=== PATIENT | female | born 2000 | race Caucasian/White ===

== ENCOUNTER 2018-03-15 19:15 | Emergency (ER) | payer SELFPAY ==
[~2018-03-15] VITALS: Ht 170.2 cm; Wt 65.9 kg
[2018-03-15 19:35] VITALS: Ht 170.2 cm; Wt 65.9 kg
[2018-03-15] MEDS ORDERED: TYLENOL #4 W/CO1 TAB PO (23:47)
[2018-03-16 01:17] VITALS: BP 131/80
== END 2018-03-16 00:15 | disposition home or self-care (01) ==
LOC: D.ER 19:15
DX: S93.401A Sprain of unspecified ligament of right ankle, initial encounter (principal); W18.31XA Fall on same level due to stepping on an object, initial encounter; Y93.89 Activity, other specified; Y92.89 Other specified places as the place of occurrence of the external cause

== ENCOUNTER 2018-04-22 18:03 | Emergency (ER) | payer MEDICAID ==
[~2018-04-22] VITALS: Ht 170.2 cm; Wt 63.6 kg
[~2018-04-22 18:03] MED LIST: TYLENOL #4 W/CO1 TAB PO
[2018-04-22 18:10] VITALS: Ht 170.2 cm; Wt 63.6 kg
[2018-04-22 18:48] LABS: BASOPHILS 0.1 % (0-2); EOSINOPHILS 2.6 % (0-7); HEMATOCRIT 39.5 % (36.0-48.0); HEMOGLOBIN 12.6 g/dL (12-16); IMMATURE GRANULOCYTES 0.4 % (0-5); LYMPHOCYTES 19.2 % (15-50); MCH 27.1 pg (26.0-34.0); MCHC 31.9 g/dL (31.0-37.0); MCV 84.9 fL (80.0-100.0); MEAN PLATELET VOLUME 10.4 fL (7.4-10.4); MONOCYTES 5.1 % (2-11); NEUTROPHILS 72.6 % (40-80); PLATELET COUNT 298 10x3/uL (130-400); RBC 4.65 10x6/uL (4.00-5.40); RDW 13.9 % (11.5-14.5); WBC 10.2 10x3/uL (4.8-10.8)
[2018-04-22 19:09] LABS: ALBUMIN 3.9 g/dL (3.4-5.0); ALKALINE PHOSPHATASE 96 U/L (46-116); ALT (SGPT) 23 U/L (10-68); CALC OSMOLALITY 284 mosm/kg (275-300); CALCIUM 8.8 mg/dL (8.5-10.1); CARBON DIOXIDE 26.4 mmol/L (21.0-32.0); CHLORIDE - SERUM 103 mmol/L (98-107); CREATININE - SERUM 0.7 mg/dL (0.6-1.3); GLUCOSE 133 mg/dL (74-106); POTASSIUM - SERUM 3.7 mmol/L (3.5-5.1); PROTEIN - SERUM 8.2 g/dL (6.4-8.2); SODIUM 142 mmol/L (136-145); UREA NITROGEN 13 mg/dL (7-18); eGFR NON AFRICAN AMERICAN > 90 mL/min (90-120)
[2018-04-22 19:16] LABS: HCG SERUM NEGATIVE (NEGATIVE)
[2018-04-22 20:34] VITALS: BP 120/64
== END 2018-04-22 20:34 | disposition home or self-care (01) ==
LOC: D.ER 18:03
PROVIDERS: Emergency Medicine
DX: R10.2 Pelvic and perineal pain (principal); N93.9 Abnormal uterine and vaginal bleeding, unspecified